=== PATIENT | male | born 1960 | race Caucasian/White ===

== ENCOUNTER 2022-01-21 13:11 | Emergency (ER) | payer MEDICAID ==
[~2022-01-21] VITALS: Ht 165.1 cm; Wt 86.2 kg
--- NOTE | 2022-01-21 13:18 | NUR ---
BIB SON C/O RIGHT ARM/WRIST PAIN S/P GLF TODAY. PAIN IS 7/10 ON PAIN SCALE. VITALS ARE WTIHIN NORMAL LIMITS. AWAITING MD MERCEDES.
[2022-01-21] MEDS ORDERED: ONDANSETRON HCL/PF 4 MG/2 ML VIAL ONE (14:23)
[2022-01-21] MEDS ORDERED: MORPHINE SULFATE INJ 2 MG/ML DISP.SYRIN ONE (14:24)
[2022-01-21] MEDS ORDERED: MORPHINE SULFATE INJ 2 MG/ML DISP.SYRIN IV ONE (14:30)
[2022-01-21] MEDS ORDERED: ONDANSETRON HCL/PF 4 MG/2 ML VIAL IV ONE (14:30)
--- NOTE | 2022-01-21 14:35 | NUR ---
X RAY AT BEDSIDE
[2022-01-21 14:46] LABS: BASOPHILS % (AUTO) 0.5 % (0.0-2.0); EOSINOPHILS % (AUTO) 0.2 % (0.0-6.0); HEMATOCRIT 43 % (39-51); HEMOGLOBIN 13.9 g/dL (13.5-17.5); LYMPHOCYTES # (AUTO) 0.8 K/uL (0.8-4.8); LYMPHOCYTES % (AUTO) 8.3 % (20.0-44.0); MEAN CORPUSCULAR HGB CONC 33 g/dl (31.0-36.0); MEAN CORPUSCULAR VOLUME 82 fL (80-96); MONOCYTES # (AUTO) 0.5 K/uL (0.1-1.30); MONOCYTES % (AUTO) 5.4 % (2.0-12.0); NEUTROPHILS # (AUTO) 8.3 K/uL (1.8-8.9); NEUTROPHILS % (AUTO) 85.6 % (43.0-81.0); PLATELET COUNT (AUTO) 259 K/uL (150-450); WHITE BLOOD COUNT (AUTO) 9.7 K/uL (4.3-11.0)
[2022-01-21] MEDS ORDERED: PROPOFOL 20 ML IV ONE (14:49)
[2022-01-21] MEDS ORDERED: PROPOFOL 200 MG/20 ML VIAL IV ONE (15:00)
--- NOTE | 2022-01-21 15:18 | NUR ---
PT VITALS PRIOR TO MODERATED SEDATION WAS HR 69, BP 122/87, RR 18, O2 95% ON ROOM AIR PT RECIEVED 90MG TOTAL OF DIPROVAN. POST PRECEDURE VITALS ARE HR 63, BP 112/86, RR 16, O2 100%. X RAY WAS CALLED AND CONFIRMED PLACEMENT.
[2022-01-21 15:39] LABS: CALCIUM, SERUM 9.1 mg/dL (8.5-10.1); POTASSIUM 4.1 mmol/L (3.5-5.1)
[2022-01-21] MEDS ORDERED: HYDROCODONE/APAP 5/325MG TABLET ONE (15:42)
[2022-01-21 15:46] LABS: BILIRUBIN,DIRECT 0.1 mg/dL (0.0-0.2); BILIRUBIN,TOTAL 0.2 mg/dL (0.2-1.0); TOTAL PROTEIN, SERUM 7.6 g/dL (6.4-8.2)
[2022-01-21 15:59] LABS: ALBUMIN 3.8 g/dL (3.4-5.0)
[2022-01-21] MEDS ORDERED: HYDROCODONE/APAP 5/325MG TABLET PO ONE (16:00)
[2022-01-21] MEDS ORDERED: IBUP-1957 PO (16:18)
[2022-01-21] MEDS ORDERED: HYDR-4209 PO (16:21)
--- NOTE | 2022-01-21 17:07 | NUR ---
IV removed. Catheter intact and site benign. Pressure and 4x4 applied to site. No bleeding noted.Patient discharged to home in stable condition. Written and verbal after care instructions given. Patient verbalizes understanding of instruction.
[2022-01-21 17:08] VITALS: BP 128/88
== END 2022-01-21 17:08 | disposition home or self-care (01) ==
LOC: ER 13:22
DX: S52.511A Displaced fracture of right radial styloid process, initial encounter for closed fracture (principal); Z79.899 Other long term (current) drug therapy; W01.0XXA Fall on same level from slipping, tripping and stumbling without subsequent striking against object, initial encounter; Y93.89 Activity, other specified; Y92.89 Other specified places as the place of occurrence of the external cause; Y99.8 Other external cause status
CPT/HCPCS: 25605; 99285; 99152; 73090; 73110; 85025; 80048; 80076; 36415; 73100; 96375; 96374; J2704; J2405; J7030; J2270; G0500